=== PATIENT | female | born 1960 | race Caucasian/White ===

== ENCOUNTER 2018-10-31 09:17 | Inpatient (IN) | payer BC, SELFPAY ==
[~2018-10-31] VITALS: Ht 162.6 cm; Wt 85.0 kg
[2018-10-31 09:42] LABS: BASOPHILS # (AUTO) 0.1 X10'3 (0-0.2); BASOPHILS % (AUTO) 0.6 % (0-1); EOSINOPHILS # (AUTO) 0.1 X10'3 (0-0.9); EOSINOPHILS % (AUTO) 1.3 % (0-6); HEMATOCRIT 40.9 % (35.0-45.0); HEMOGLOBIN 14.1 g/dl (12.0-16.0); LYMPHOCYTES # (AUTO) 1.1 X10'3 (1.1-4.8); MEAN CORPUSCULAR HEMOGLOBIN 31.2 PG (27.0-31.0); MEAN CORPUSCULAR HGB CONC 34.5 g/dL (33.0-36.5); MEAN CORPUSCULAR VOLUME 90.5 FL (78-98); MEAN PLATELET VOLUME 6.9 FL (7.4-10.4); MONOCYTES # (AUTO) 0.8 X10'3 (0-0.9); MONOCYTES % (AUTO) 7.7 % (2-12); NEUTROPHILS # (AUTO) 8.8 X10'3 (1.8-7.7); NEUTROPHILS % (AUTO) 80.4 % (42-75); PLATELET COUNT 281 X10'3 (140-440); RED BLOOD COUNT 4.52 X10'6 (4.20-5.60); WHITE BLOOD COUNT 10.9 X10'3 (4.5-11.0)
[2018-10-31 09:54] LABS: ALANINE AMINOTRANSFERASE 39 U/L (12-78); ALBUMIN 3.3 G/DL (3.4-5.0); ALBUMIN/GLOBULIN RATIO 0.8 (1.1-1.5); ALKALINE PHOSPHATASE 57 IU/L (46-116); ANION GAP 13 (8-16); ASPARTATE AMINO TRANSFERASE 18 U/L (10-37); BILIRUBIN,TOTAL 0.4 MG/DL (0.1-1.0); BLOOD UREA NITROGEN 13 MG/DL (7-18); BUN/CREATININE RATIO 14.4 (6.6-38.0); CALCIUM 9.3 MG/DL (8.5-10.1); CHLORIDE 98 MMOL/L (99-107); ETHANOL < 0.010 GM/DL (0.0-0.010); GLUCOSE 181 MG/DL (70-104); MAGNESIUM 1.5 MG/DL (1.5-2.4); POTASSIUM 3.5 MMOL/L (3.5-5.1); SODIUM 136 MMOL/L (135-145); TOTAL CARBON DIOXIDE 24.7 MMOL/L (24-32); TOTAL PROTEIN 7.3 G/DL (6.4-8.2); eGFR 64 ML/MIN
[2018-10-31 09:55] LABS: PARTIAL THROMBOPLASTIN TIME 28 SECONDS (22-32)
[2018-10-31 10:44] LABS: URINE AMPHETAMINE SCREEN NEGATIVE (Neg); URINE BARBITUATE SCREEN NEGATIVE (Neg); URINE BENZODIAZEPINES SCREEN NEGATIVE (Neg); URINE CANNABINOID SCREEN POSITIVE (Neg); URINE COCAINE SCREEN NEGATIVE (Neg); URINE METHADONE SCREEN NEGATIVE (Neg); URINE OPIATE SCREEN NEGATIVE (Neg); URINE PHENCYCLIDINE SCREEN NEGATIVE (Neg)
--- NOTE | 2018-10-31 10:56 | NUR ---
TELENEURO HAS BEEN INITIATED
--- NOTE | 2018-10-31 10:57 | NUR ---
waiting on tele neuro consult
--- NOTE | 2018-10-31 11:16 | NUR ---
neurologist on tele
[2018-10-31] MEDS ORDERED: LORazepam 2 mg/ml vial IV ONE (12:10)
[2018-10-31] MEDS ORDERED: diazepam 5mg tablet PO ONE (12:10)
[2018-10-31] MEDS ORDERED: ISOS30TA6 PO (13:25)
[2018-10-31] MEDS ORDERED: METF-950 PO (13:25)
[2018-10-31] MEDS ORDERED: LOSA50TA64 PO (13:25)
[2018-10-31] MEDS ORDERED: LINA5TAB4 PO (13:25)
[2018-10-31] MEDS ORDERED: HYDR25TA4 PO (13:25)
[2018-10-31] MEDS ORDERED: INSU100I5 SQ ×2 (13:25→13:54)
[2018-10-31] MEDS ORDERED: SIMV80TA89 PO (13:25)
[2018-10-31] MEDS ORDERED: METO25TA6 PO (13:25)
[2018-10-31] MEDS ORDERED: aspirin 325mg tablet PO ONE (13:30)
--- NOTE | 2018-10-31 13:40 | NUR ---
Pt ambulated to restroom with no assistance required, ambualting with steady gait.
[2018-10-31] MEDS ORDERED: SIMV40TA PO (13:54)
[2018-10-31] MEDS ORDERED: CYAN100019 PO (13:57)
[2018-10-31] MEDS ORDERED: MULT-955 PO (13:57)
[2018-10-31] MEDS ORDERED: FERR325T32 PO (13:57)
[2018-10-31] MEDS ORDERED: CALC1TAB PO (13:57)
[2018-10-31] MEDS ORDERED: POTA99TA18 PO (13:57)
[2018-10-31] MEDS ORDERED: potassium Cl 20 mEq SR tablet PO PRN ×2 (14:30)
[2018-10-31] MEDS ORDERED: ondansetron/PF 4mg/2ml inj IV PRN (14:30)
[2018-10-31] MEDS ORDERED: morphine 2 MG/ML inj. syringe IV PRN (14:30)
[2018-10-31] MEDS ORDERED: potassium CL 10mEq/100ml bag 100 ML IV PRN ×2 (14:30)
[2018-10-31] MEDS ORDERED: mag hydrox/Alum hydrox/simeth 30ml oral suspension PO PRN (14:30)
[2018-10-31] MEDS ORDERED: magnesium hydroxide 30ml (MOM) UD suspension PO PRN (14:30)
[2018-10-31] MEDS ORDERED: HYDROcodone/acetaminophen 5mg/325mg tablet PO PRN (14:30)
[2018-10-31] MEDS ORDERED: magnesium 4gm in 100ml NS 100 ML IV PRN (14:30)
[2018-10-31] MEDS ORDERED: magnesium 2GM in 50ml NS 50 ML IV PRN (14:30)
[2018-10-31] MEDS ORDERED: acetaminophen 325mg tablet PO PRN ×2 (14:30)
[2018-10-31] MEDS ORDERED: magnesium Cl slow-release 64mg tablet PO PRN (14:30)
[2018-10-31] MEDS ORDERED: glucagon, human recombinant 1mg kit SUBCUT PRN (14:45)
[2018-10-31] MEDS ORDERED: MESSAGE TO PHARMACY PO ONE (14:45)
[2018-10-31] MEDS ORDERED: dextrose 50%-water 50ml dispensing syringe IV PRN ×2 (14:45)
[2018-10-31] MEDS ORDERED: dextrose ORAL solution 15 GM/59 ML bottle PO PRN ×2 (14:45)
--- NOTE | 2018-10-31 14:57 | NUR ---
Pt provided snack. No new deficits noted. Pt evaluated by hospitalist, awaiting room assignment.
[2018-10-31 15:05] LABS: HEMOGLOBIN A1C 7.1 % (4.5-6.2)
[2018-10-31] MEDS: clopidogrel 75mg tablet PO SCH (15:28)
--- NOTE | 2018-10-31 15:33 | NUR ---
Received report from Armin VELAZCO in the ER
[2018-10-31] MEDS: normal saline 1000ml 1,000 ML IV SCH (15:49)
[2018-10-31 16:07] VITALS: BP 172/89
--- NOTE | 2018-10-31 17:10 | NUR ---
robbie hospitalist [phone] can PRN albuterol treatments be ordered patient uses PRN at home, will continue to monitor
[2018-10-31] MEDS ORDERED: albuterol 2.5 MG/3 ML nebule NEB PRN (17:15)
[2018-10-31 18:00] VITALS: BP 182/89
--- NOTE | 2018-10-31 18:07 | NUR ---
Problems reprioritized. Patient report given, questions answered & plan of care reviewed with Shawanda Reynaga RN.
[2018-10-31] MEDS: metoprolol tartrate 25mg tablet PO SCH (20:55)
[2018-10-31] MEDS: heparin, porcine 5000 units/ml vial SQ SCH (20:58)
[2018-10-31] MEDS ORDERED: atorvastatin 20mg tablet PO SCH (21:00)
[2018-10-31] MEDS ORDERED: insulin glargine (Lantus) pen - multi-dose SQ SCH (21:00)
[2018-10-31] MEDS ORDERED: temazepam 15mg capsule PO PRN (21:00)
--- NOTE | 2018-10-31 21:29 | NUR ---
after dinner, resource nurse took carb count and stated to me that he would cover patient. continued to ask him if I needed to do it - he stated he would take care of it. at 2030, he still hadnt covered her dinner and carbs. he took her BS and covered her with Lantus.
[2018-10-31 22:00] VITALS: BP 181/79
[2018-11-01] MEDS: normal saline 1000ml 1,000 ML IV SCH ×2 (00:59→10:28)
[2018-11-01 02:08] VITALS: BP 164/69
--- NOTE | 2018-11-01 06:00 | NUR ---
Patient in room ORTHO 4022. I have received report from Shawanda Blanco RN and had the opportunity to ask questions and assume patient care.
--- NOTE | 2018-11-01 06:10 | NUR ---
Problems reprioritized. Patient report given, questions answered & plan of care reviewed with MORA Patel.
[2018-11-01 06:24] LABS: ANION GAP 6 (8-16); BLOOD UREA NITROGEN 10 MG/DL (7-18); BUN/CREATININE RATIO 14.1 (6.6-38.0); CALCIUM 8.8 MG/DL (8.5-10.1); CHLORIDE 105 MMOL/L (99-107); CHOL/HDL RATIO 5.4 (0.00-4.99); CHOLESTEROL 162 MG/DL (0-200); CREATININE 0.71 MG/DL (0.40-0.90); GLUCOSE 155 MG/DL (70-104); HDL CHOLESTEROL 30 MG/DL (35-60); LDL CHOLESTEROL 111 MG/DL (50-100); MAGNESIUM 1.4 MG/DL (1.5-2.4); POTASSIUM 3.5 MMOL/L (3.5-5.1); SODIUM 142 MMOL/L (135-145); TOTAL CARBON DIOXIDE 31.1 MMOL/L (24-32); TRIGLYCERIDES 156 MG/DL (20-135); eGFR 84 ML/MIN
[2018-11-01 06:30] LABS: BASOPHILS # (AUTO) 0.1 X10'3 (0-0.2); BASOPHILS % (AUTO) 0.9 % (0-1); EOSINOPHILS # (AUTO) 0.2 X10'3 (0-0.9); EOSINOPHILS % (AUTO) 2.6 % (0-6); HEMOGLOBIN 13.3 g/dl (12.0-16.0); LYMPHOCYTES # (AUTO) 1.2 X10'3 (1.1-4.8); LYMPHOCYTES % (AUTO) 19.3 % (21-51); MEAN CORPUSCULAR HEMOGLOBIN 31.1 PG (27.0-31.0); MEAN CORPUSCULAR VOLUME 91.4 FL (78-98); MEAN PLATELET VOLUME 7.2 FL (7.4-10.4); MONOCYTES # (AUTO) 0.8 X10'3 (0-0.9); NEUTROPHILS # (AUTO) 4.1 X10'3 (1.8-7.7); NEUTROPHILS % (AUTO) 65.2 % (42-75); PLATELET COUNT 258 X10'3 (140-440); RED BLOOD COUNT 4.27 X10'6 (4.20-5.60); RED CELL DISTRIBUTION WIDTH 13.1 % (11.5-14.5); WHITE BLOOD COUNT 6.3 X10'3 (4.5-11.0)
[2018-11-01 06:55] VITALS: BP 171/88
[2018-11-01 07:45] VITALS: BP 165/83
[2018-11-01] MEDS: metoprolol tartrate 25mg tablet PO SCH (07:47)
[2018-11-01] MEDS: clopidogrel 75mg tablet PO SCH (07:48)
[2018-11-01] MEDS: heparin, porcine 5000 units/ml vial SQ SCH (07:48)
[2018-11-01] MEDS ORDERED: isosorbide mononitrate 30mg tab.SR.24H PO SCH (08:00)
[2018-11-01] MEDS ORDERED: atorvastatin 20mg tablet PO SCH (08:00)
[2018-11-01] MEDS ORDERED: aspirin 81mg tablet.DR PO SCH (08:00)
[2018-11-01] MEDS ORDERED: K and/or MAG REPLACEMENT MC SCH (08:00)
[2018-11-01] MEDS ORDERED: losartan 50mg tablet PO SCH (08:00)
[2018-11-01] MEDS: insulin Lispro (HumaLOG) vial - multi-dose SQ SCH ×2 (08:38→13:32)
[2018-11-01] MEDS ORDERED: hyDRALAzine 10mg tablet PO PRN (09:30)
[2018-11-01 10:17] VITALS: BP 165/79
--- NOTE | 2018-11-01 12:51 | NUR ---
DM consult: Pt with A1c 7.1 seen at bedside. Pt denies any questions about DM management at this time. Written DM ed with referral to outpatient DM class and RD contact information provided. Pt endorses a good appetite and denies food allergies, difficulty chewing/swallowing, or constipation/diarrhea. Will continue to follow. Addendum: 11/01/18 at [address] Amended: Links added.
[2018-11-01 14:00] VITALS: BP 159/80
[2018-11-01] MEDS ORDERED: CLOP75TA35 PO (15:04)
[2018-11-01] MEDS ORDERED: hyDRALAzine tablet PO (15:04)
[2018-11-01] MEDS ORDERED: ASPI-1071 PO (15:04)
[2018-11-01 15:08] VITALS: BP 155/84
--- NOTE | 2018-11-01 15:45 | NUR ---
Called in Rx to [facility] in [place]
--- NOTE | 2018-11-01 16:00 | NUR ---
Reviewed discharge instructions with pt. Pt verbalized understanding. Called in Rx to [facility] in [place]. All of pt's belongings were returned to pt. Pt was wheeled downstairs to be driven home by her . Pt is alert and oriented with no c/o pain or discomfort at this time.
[2018-11-02] MEDS ORDERED: HYDROchlorothiazide 12.5mg capsule PO SCH (08:00)
== END 2018-11-01 16:10 | disposition home or self-care (01) | DRG 66 ==
LOC: ER 09:18 → ORTHO 4S 15:54
PROVIDERS: ADMIT Internal Medicine; ATTEND Internal Medicine
DX: I63.9 Cerebral infarction, unspecified (principal); Z88.6 Allergy status to analgesic agent; R47.01 Aphasia; I10 Essential (primary) hypertension; E78.5 Hyperlipidemia, unspecified; E11.65 Type 2 diabetes mellitus with hyperglycemia; F43.9 Reaction to severe stress, unspecified; Z88.1 Allergy status to other antibiotic agents; Z88.8 Allergy status to other drugs, medicaments and biological substances; I25.10 Atherosclerotic heart disease of native coronary artery without angina pectoris; E78.00 Pure hypercholesterolemia, unspecified; Z87.442 Personal history of urinary calculi; Z95.5 Presence of coronary angioplasty implant and graft
CPT/HCPCS: 36415; 70450; 70544; 70551; 71045; 80048; 80053; 80061; 80305; 80320; 82948; 83036; 83735; 84484; 85025; 85610; 85730; 87081; 92508; 92616; 93005; 93306; 93880; 94760; 96374; 97162; 97530; 99285; G0378; J1644; J1815; J2060; J7030

== ENCOUNTER 2018-12-03 20:16 | Emergency (ER) | payer BC ==
[~2018-12-03] VITALS: Ht 167.6 cm; Wt 84.5 kg
[~2018-12-03 20:16] MED LIST: ASPI-1071 PO; CALC1TAB PO; CLOP75TA35 PO; CYAN100019 PO; FERR325T32 PO; HYDR25TA4 PO; INSU100I5 SQ; ISOS30TA6 PO; LINA5TAB4 PO; LOSA50TA64 PO; METF-950 PO; METO25TA6 PO; MULT-955 PO; POTA99TA18 PO; SIMV40TA PO; hyDRALAzine tablet PO
[2018-12-03] MEDS ORDERED: cloNIDine 0.1 mg tablet PO ONE ×2 (21:10→22:00)
[2018-12-03 21:39] LABS: BASOPHILS # (AUTO) 0.1 X10'3 (0-0.2); BASOPHILS % (AUTO) 0.9 % (0-1); EOSINOPHILS # (AUTO) 0.2 X10'3 (0-0.9); EOSINOPHILS % (AUTO) 2.5 % (0-6); HEMATOCRIT 40.4 % (35.0-45.0); HEMOGLOBIN 13.7 g/dl (12.0-16.0); LYMPHOCYTES # (AUTO) 1.3 X10'3 (1.1-4.8); LYMPHOCYTES % (AUTO) 17.3 % (21-51); MEAN CORPUSCULAR HEMOGLOBIN 30.7 PG (27.0-31.0); MEAN CORPUSCULAR HGB CONC 33.8 g/dL (33.0-36.5); MEAN CORPUSCULAR VOLUME 90.7 FL (78-98); MEAN PLATELET VOLUME 7.1 FL (7.4-10.4); MONOCYTES # (AUTO) 0.8 X10'3 (0-0.9); MONOCYTES % (AUTO) 10.2 % (2-12); NEUTROPHILS # (AUTO) 5.2 X10'3 (1.8-7.7); NEUTROPHILS % (AUTO) 69.1 % (42-75); PLATELET COUNT 258 X10'3 (140-440); RED BLOOD COUNT 4.46 X10'6 (4.20-5.60); RED CELL DISTRIBUTION WIDTH 12.8 % (11.5-14.5); WHITE BLOOD COUNT 7.5 X10'3 (4.5-11.0)
[2018-12-03 21:51] LABS: ALANINE AMINOTRANSFERASE 24 U/L (12-78); ALBUMIN 3.5 G/DL (3.4-5.0); ALBUMIN/GLOBULIN RATIO 0.9 (1.1-1.5); ALKALINE PHOSPHATASE 50 IU/L (46-116); ANION GAP 8 (8-16); ASPARTATE AMINO TRANSFERASE 11 U/L (10-37); BILIRUBIN,TOTAL 0.4 MG/DL (0.1-1.0); BLOOD UREA NITROGEN 16 MG/DL (7-18); BUN/CREATININE RATIO 19.8 (6.6-38.0); CALCIUM 9.9 MG/DL (8.5-10.1); CHLORIDE 99 MMOL/L (99-107); CREATININE 0.81 MG/DL (0.40-0.90); GLUCOSE 166 MG/DL (70-104); POTASSIUM 3.3 MMOL/L (3.5-5.1); SODIUM 138 MMOL/L (135-145); TOTAL CARBON DIOXIDE 31.3 MMOL/L (24-32); TOTAL PROTEIN 7.4 G/DL (6.4-8.2); eGFR 72 ML/MIN
[2018-12-03 22:06] LABS: CLARITY,URINE CLEAR (Clear); COLOR,URINE YELLOW (Yellow); GLUCOSE, URINE NEGATIVE (Neg); KETONES,URINE NEGATIVE (Neg); LEUKOCYTE ESTERASE ,URINE LARGE (Neg); NITRITES, URINE NEGATIVE (Neg); OCCULT BLOOD,URINE MODERATE (Neg); PROTEIN,URINE NEGATIVE (Neg); UROBILINOGEN,URINE 0.2 E.U/dL (0.2-1.0)
[2018-12-03 22:07] LABS: UA COLLECTION TYPE CLN CATCH MIDSTREAM
[2018-12-03 22:11] LABS: BACTERIA,URINE FEW /HPF (Neg); RBC,URINE 0-2 /HPF (0-2); SQUAMOUS EPITHELIAL CELL,UR FEW /LPF (FEW)
[2018-12-03 22:12] LABS: MUCUS STRANDS NONE SEEN /LPF (Neg)
[2018-12-03 23:11] VITALS: BP 130/70
== END 2018-12-03 23:10 | disposition home or self-care (01) ==
LOC: ER 20:17
DX: I10 Essential (primary) hypertension (principal); R47.01 Aphasia; I25.10 Atherosclerotic heart disease of native coronary artery without angina pectoris; E78.00 Pure hypercholesterolemia, unspecified; E11.9 Type 2 diabetes mellitus without complications; Z87.442 Personal history of urinary calculi; Z98.61 Coronary angioplasty status; Z98.890 Other specified postprocedural states; Z88.2 Allergy status to sulfonamides; Z88.5 Allergy status to narcotic agent; Z88.8 Allergy status to other drugs, medicaments and biological substances; Z79.82 Long term (current) use of aspirin; Z79.899 Other long term (current) drug therapy
CPT/HCPCS: 36415; 80053; 81001; 85025; 87088; 93005; 99284

== ENCOUNTER 2018-12-10 02:37 | Inpatient (IN) | payer BC ==
[2018-12-10] VITALS (7 sets, daily range): BP systolic 141–191; BP diastolic 66–101
[~2018-12-10] VITALS: Ht 167.6 cm; Wt 83.2 kg
[2018-12-10 03:16] LABS: BASOPHILS % (AUTO) 0.5 % (0-1); EOSINOPHILS # (AUTO) 0.1 X10'3 (0-0.9); EOSINOPHILS % (AUTO) 1.6 % (0-6); HEMATOCRIT 41.1 % (35.0-45.0); HEMOGLOBIN 13.9 g/dl (12.0-16.0); LYMPHOCYTES # (AUTO) 1.3 X10'3 (1.1-4.8); LYMPHOCYTES % (AUTO) 15.1 % (21-51); MEAN CORPUSCULAR HEMOGLOBIN 30.5 PG (27.0-31.0); MEAN CORPUSCULAR HGB CONC 33.7 g/dL (33.0-36.5); MEAN CORPUSCULAR VOLUME 90.6 FL (78-98); MEAN PLATELET VOLUME 7.1 FL (7.4-10.4); MONOCYTES % (AUTO) 11.9 % (2-12); NEUTROPHILS # (AUTO) 6.1 X10'3 (1.8-7.7); NEUTROPHILS % (AUTO) 70.9 % (42-75); PLATELET COUNT 263 X10'3 (140-440); RED BLOOD COUNT 4.54 X10'6 (4.20-5.60); RED CELL DISTRIBUTION WIDTH 13.2 % (11.5-14.5); WHITE BLOOD COUNT 8.6 X10'3 (4.5-11.0)
[2018-12-10 03:22] LABS: PARTIAL THROMBOPLASTIN TIME 27 SECONDS (22-32)
[2018-12-10 03:29] LABS: ALANINE AMINOTRANSFERASE 28 U/L (12-78); ALBUMIN 3.7 G/DL (3.4-5.0); ALKALINE PHOSPHATASE 45 IU/L (46-116); ANION GAP 12 (8-16); ASPARTATE AMINO TRANSFERASE 17 U/L (10-37); BILIRUBIN,TOTAL 0.6 MG/DL (0.1-1.0); BLOOD UREA NITROGEN 18 MG/DL (7-18); CALCIUM 9.4 MG/DL (8.5-10.1); CHLORIDE 97 MMOL/L (99-107); CREATININE 0.82 MG/DL (0.40-0.90); GLUCOSE 136 MG/DL (70-104); POTASSIUM 3.3 MMOL/L (3.5-5.1); SODIUM 136 MMOL/L (135-145); TOTAL CARBON DIOXIDE 26.6 MMOL/L (24-32); TOTAL PROTEIN 7.5 G/DL (6.4-8.2); TROPONIN I < 0.04 NG/ML (0.0-0.05); eGFR 71 ML/MIN
[2018-12-10] MEDS ORDERED: ondansetron/PF 4mg/2ml inj IV PRN (05:10)
[2018-12-10] MEDS ORDERED: magnesium 2GM in 50ml NS 50 ML IV PRN (05:10)
[2018-12-10] MEDS ORDERED: mag hydrox/Alum hydrox/simeth 30ml oral suspension PO PRN (05:10)
[2018-12-10] MEDS ORDERED: MESSAGE TO PHARMACY PO ONE (05:10)
[2018-12-10] MEDS ORDERED: potassium Cl 20 mEq SR tablet PO PRN (05:10)
[2018-12-10] MEDS ORDERED: magnesium hydroxide 30ml (MOM) UD suspension PO PRN (05:10)
[2018-12-10] MEDS ORDERED: potassium CL 10mEq/100ml bag 100 ML IV PRN ×2 (05:10)
[2018-12-10] MEDS ORDERED: acetaminophen 325mg tablet PO PRN ×2 (05:10)
[2018-12-10] MEDS ORDERED: glucagon, human recombinant 1mg kit SUBCUT PRN (05:10)
[2018-12-10] MEDS ORDERED: dextrose 50%-water 50ml dispensing syringe IV PRN ×2 (05:10)
[2018-12-10] MEDS ORDERED: magnesium 4gm in 100ml NS 100 ML IV PRN (05:10)
[2018-12-10] MEDS ORDERED: dextrose ORAL solution 15 GM/59 ML bottle PO PRN ×2 (05:10)
[2018-12-10] MEDS ORDERED: magnesium Cl slow-release 64mg tablet PO PRN (05:10)
[2018-12-10 05:25] LABS: C-REACTIVE PROTEIN 0.39 MG/DL (0.0-0.5)
[2018-12-10] MEDS ORDERED: hydrALAZINE 25 MG tablet PO PRN (06:20)
[2018-12-10] MEDS ORDERED: clopidogrel 75mg tablet PO SCH (08:00)
[2018-12-10] MEDS ORDERED: aspirin 81mg tablet.DR PO SCH (08:00)
[2018-12-10] MEDS ORDERED: Potassium Gluconate 99 MG PO SCH (08:00)
[2018-12-10] MEDS: K and/or MAG REPLACEMENT MC SCH (08:33)
[2018-12-10] MEDS: ferrous sulfate 325mg tablet PO SCH (08:43)
[2018-12-10] MEDS: HYDROchlorothiazide 25mg tablet PO SCH (08:43)
[2018-12-10] MEDS: isosorbide mononitrate 30mg tab.SR.24H PO SCH (08:43)
[2018-12-10] MEDS: metoprolol tartrate 25mg tablet PO SCH ×2 (08:44→20:40)
[2018-12-10] MEDS: calcium carbonate/vitamin D3 tablet PO SCH (08:45)
[2018-12-10] MEDS: multivitamins, therapeutics tablet PO SCH (08:46)
[2018-12-10] MEDS: cyanocobalamin 500mcg tablet PO SCH (08:47)
[2018-12-10] MEDS: enoxaparin 40mg/0.4ml syringe SQ SCH (08:48)
[2018-12-10] MEDS: potassium Cl 20 mEq SR tablet PO PRN ×3 (08:49→20:36)
[2018-12-10] MEDS: insulin Lispro (HumaLOG) vial - multi-dose SQ SCH ×2 (15:06→19:16)
--- NOTE | 2018-12-10 18:10 | NUR ---
Received report from Chelly VELAZCO. Assumed care of patient.
--- NOTE | 2018-12-10 18:30 | NUR ---
Dr. Butler came in to assess patient's neurological system. Ordered to stop plavix & aspirin and prescribed aggrenox
[2018-12-10] MEDS ORDERED: insulin glargine (Lantus) pen - multi-dose SQ SCH (21:00)
[2018-12-10] MEDS ORDERED: atorvastatin 20mg tablet PO SCH (21:00)
[2018-12-10] MEDS: aspirin/dipyridamole 25mg/200mg SR. capsule PO SCH (21:07)
[2018-12-11 02:00] VITALS: BP 139/69
[2018-12-11 05:52] LABS: BASOPHILS # (AUTO) 0.1 X10'3 (0-0.2); BASOPHILS % (AUTO) 0.9 % (0-1); EOSINOPHILS # (AUTO) 0.1 X10'3 (0-0.9); EOSINOPHILS % (AUTO) 1.4 % (0-6); HEMATOCRIT 42.8 % (35.0-45.0); HEMOGLOBIN 15.1 g/dl (12.0-16.0); LYMPHOCYTES # (AUTO) 1.3 X10'3 (1.1-4.8); MEAN CORPUSCULAR HEMOGLOBIN 31.8 PG (27.0-31.0); MEAN CORPUSCULAR HGB CONC 35.1 g/dL (33.0-36.5); MEAN CORPUSCULAR VOLUME 90.5 FL (78-98); MEAN PLATELET VOLUME 7.1 FL (7.4-10.4); MONOCYTES % (AUTO) 11.7 % (2-12); PLATELET COUNT 277 X10'3 (140-440); RED BLOOD COUNT 4.73 X10'6 (4.20-5.60); RED CELL DISTRIBUTION WIDTH 13.1 % (11.5-14.5); WHITE BLOOD COUNT 8.4 X10'3 (4.5-11.0)
[2018-12-11 06:00] VITALS: BP 130/73
--- NOTE | 2018-12-11 06:05 | NUR ---
Gave report to Saige VELAZCO.
--- NOTE | 2018-12-11 06:09 | NUR ---
received report to salo coates
[2018-12-11 06:16] LABS: ALBUMIN 3.9 G/DL (3.4-5.0); ANION GAP 11 (8-16); BLOOD UREA NITROGEN 11 MG/DL (7-18); BUN/CREATININE RATIO 13.1 (6.6-38.0); CALCIUM 10.2 MG/DL (8.5-10.1); CHLORIDE 97 MMOL/L (99-107); CREATININE 0.84 MG/DL (0.40-0.90); GLUCOSE 188 MG/DL (70-104); MAGNESIUM 1.9 MG/DL (1.5-2.4); POTASSIUM 3.7 MMOL/L (3.5-5.1); SODIUM 134 MMOL/L (135-145); TOTAL CARBON DIOXIDE 26.3 MMOL/L (24-32); eGFR 69 ML/MIN
--- NOTE | 2018-12-11 06:50 | NUR ---
Patient in room ORTHO 4014. I have received report from Saige VELAZCO and had the opportunity to ask questions and assume patient care.
[2018-12-11] MEDS: K and/or MAG REPLACEMENT MC SCH (07:09)
[2018-12-11] MEDS: aspirin/dipyridamole 25mg/200mg SR. capsule PO SCH (07:49)
[2018-12-11] MEDS: cyanocobalamin 500mcg tablet PO SCH (07:49)
[2018-12-11] MEDS: metoprolol tartrate 25mg tablet PO SCH (07:51)
[2018-12-11] MEDS: isosorbide mononitrate 30mg tab.SR.24H PO SCH (07:52)
[2018-12-11] MEDS: ferrous sulfate 325mg tablet PO SCH (07:52)
[2018-12-11] MEDS: HYDROchlorothiazide 25mg tablet PO SCH (07:53)
[2018-12-11] MEDS: calcium carbonate/vitamin D3 tablet PO SCH (07:53)
[2018-12-11] MEDS: multivitamins, therapeutics tablet PO SCH (07:54)
[2018-12-11] MEDS: enoxaparin 40mg/0.4ml syringe SQ SCH (07:55)
[2018-12-11] MEDS: insulin Lispro (HumaLOG) vial - multi-dose SQ SCH (08:40)
--- NOTE | 2018-12-11 09:13 | NUR ---
CALLED LAB REGARDING FACTOR V TEST, A PATHOLOGIST HAS TO APPROVE THE TEST PRIOR TO RUNNING. NOTIFIED DR. AL.
[2018-12-11 10:00] VITALS: BP 139/81
[2018-12-11] MEDS ORDERED: ASPI1CPM6 PO (11:43)
--- NOTE | 2018-12-11 11:52 | NUR ---
Student documentation: I have reviewed all interventions, assessments performed and documented by Gay Coello. Student Medication Administration: For this medication-pass time frame, all medication were reviewed, dispensed, administered and documented per hospital policy by Gay Coello.
--- NOTE | 2018-12-11 12:15 | NUR ---
Problems reprioritized. Patient report given, questions answered & plan of care reviewed with Saige VELAZCO.
--- NOTE | 2018-12-11 12:38 | NUR ---
pt d/c w/instructions, understanding of instructions and w/all belongings in wheelchair to private vehicle to go home and f/u w/pcp and neurologist
[2018-12-12 17:08] LABS: ATYPICAL PANCA <1:20 titer (Neg:<1:20); CYTOPLASMIC (C-ANCA) <1:20 titer (Neg:<1:20); PERINUCLEAR (P-ANCA) <1:20 titer (Neg:<1:20)
[2018-12-13 08:14] LABS: PROTEIN S, FREE 124 % (57-157); PROTEIN S, TOTAL 99 % (60-150)
[2018-12-13 11:10] LABS: ANTITHROMBIN ACTIVITY 124 % (75-135); ANTITHROMBIN ANTIGEN 112 % (72-124)
== END 2018-12-11 12:30 | disposition home or self-care (01) | DRG 66 ==
LOC: ER 02:38 → ORTHO 4S 07:44 → CMPBEDREQ 19:43
PROVIDERS: ADMIT Hospitalist; ATTEND Hospitalist
DX: I63.512 Cerebral infarction due to unspecified occlusion or stenosis of left middle cerebral artery (principal); E11.9 Type 2 diabetes mellitus without complications; E78.00 Pure hypercholesterolemia, unspecified; I10 Essential (primary) hypertension; I25.10 Atherosclerotic heart disease of native coronary artery without angina pectoris; Z79.02 Long term (current) use of antithrombotics/antiplatelets; Z79.82 Long term (current) use of aspirin; Z87.442 Personal history of urinary calculi; Z88.2 Allergy status to sulfonamides; Z88.5 Allergy status to narcotic agent; Z88.8 Allergy status to other drugs, medicaments and biological substances; Z98.891 History of uterine scar from previous surgery; Z79.899 Other long term (current) drug therapy; Z79.4 Long term (current) use of insulin
CPT/HCPCS: 36415; 70450; 70544; 70547; 70551; 71045; 80048; 80053; 82948; 83735; 84484; 85025; 85300; 85301; 85303; 85305; 85306; 85610; 85651; 85730; 86038; 86140; 86147; 86256; 87081; 92507; 92508; 92616; 93005; 97116; 97161; 97530; 99285; G0378; J1650; J1815; J3420

== ENCOUNTER 2018-12-13 20:08 | Inpatient (IN) | payer BC ==
[~2018-12-13] VITALS: Ht 167.6 cm; Wt 82.7 kg
[~2018-12-13 20:08] MED LIST changes: +ASPI1CPM6 PO; -CLOP75TA35 PO; -LOSA50TA64 PO
--- NOTE | 2018-12-13 20:40 | NUR ---
Responded to level 1 stroke alert bed 14. pt up ambulating to bathroom, CT is complete. at bedside, he reports that at 1840 she had worsening expressive aphasia and c/o that left face, arm and leg were cold and numb. awaiting SOC consult. reviewed old records with mri showing recent stroke.
--- NOTE | 2018-12-13 21:15 | NUR ---
Dr. Chu from [facility] for neuro consult. Her speech is at baseline per , she has very mild numbness to left face and arm. She is able to ambulate independenly. She recommends admission with stroke workup.
[2018-12-13 21:27] LABS: BASOPHILS # (AUTO) 0.1 X10'3 (0-0.2); EOSINOPHILS # (AUTO) 0.1 X10'3 (0-0.9); HEMATOCRIT 39.6 % (35.0-45.0); HEMOGLOBIN 13.6 g/dl (12.0-16.0); LYMPHOCYTES # (AUTO) 1.3 X10'3 (1.1-4.8); LYMPHOCYTES % (AUTO) 15.5 % (21-51); MEAN CORPUSCULAR HEMOGLOBIN 31.1 PG (27.0-31.0); MEAN CORPUSCULAR HGB CONC 34.3 g/dL (33.0-36.5); MEAN CORPUSCULAR VOLUME 90.6 FL (78-98); MEAN PLATELET VOLUME 7.2 FL (7.4-10.4); MONOCYTES # (AUTO) 0.9 X10'3 (0-0.9); MONOCYTES % (AUTO) 10.8 % (2-12); NEUTROPHILS # (AUTO) 5.9 X10'3 (1.8-7.7); NEUTROPHILS % (AUTO) 71.7 % (42-75); PLATELET COUNT 298 X10'3 (140-440); RED BLOOD COUNT 4.38 X10'6 (4.20-5.60); WHITE BLOOD COUNT 8.2 X10'3 (4.5-11.0)
[2018-12-13 21:28] LABS: PARTIAL THROMBOPLASTIN TIME 27 SECONDS (22-32)
[2018-12-13 21:47] LABS: ALANINE AMINOTRANSFERASE 31 U/L (12-78); ALBUMIN 3.5 G/DL (3.4-5.0); ALBUMIN/GLOBULIN RATIO 0.9 (1.1-1.5); ALKALINE PHOSPHATASE 43 IU/L (46-116); ANION GAP 12 (8-16); ASPARTATE AMINO TRANSFERASE 16 U/L (10-37); BILIRUBIN,TOTAL 0.5 MG/DL (0.1-1.0); BLOOD UREA NITROGEN 18 MG/DL (7-18); BUN/CREATININE RATIO 19.8 (6.6-38.0); CALCIUM 9.1 MG/DL (8.5-10.1); CHLORIDE 100 MMOL/L (99-107); CREATININE 0.91 MG/DL (0.40-0.90); GLUCOSE 97 MG/DL (70-104); SODIUM 139 MMOL/L (135-145); TOTAL CARBON DIOXIDE 27.3 MMOL/L (24-32); TOTAL PROTEIN 7.2 G/DL (6.4-8.2); TROPONIN I < 0.04 NG/ML (0.0-0.05); eGFR 63 ML/MIN
[2018-12-13 21:54] LABS: POTASSIUM 2.9 MMOL/L (3.5-5.1)
[2018-12-13] MEDS ORDERED: magnesium 2GM in 50ml NS 50 ML IV ONE (22:05)
[2018-12-13] MEDS ORDERED: potassium 10mEq/100ml NS w/LIDOcaine (10mg/bag) IV ONE (22:05)
[2018-12-13] MEDS ORDERED: magnesium oxide 400mg tablet PO ONE (22:05)
[2018-12-13] MEDS ORDERED: potassium Cl 20 mEq SR tablet PO ONE (22:05)
[2018-12-13] MEDS ORDERED: potassium Cl 10 mEq/100mL bag IV ONE (22:10)
[2018-12-13] MEDS ORDERED: morphine 2 MG/ML inj. syringe IV PRN ×2 (22:30)
[2018-12-13] MEDS ORDERED: magnesium hydroxide 30ml (MOM) UD suspension PO PRN (22:30)
[2018-12-13] MEDS ORDERED: acetaminophen 325mg tablet PO PRN (22:30)
[2018-12-13] MEDS ORDERED: mag hydrox/Alum hydrox/simeth 30ml oral suspension PO PRN (22:30)
[2018-12-13] MEDS ORDERED: ondansetron/PF 4mg/2ml inj IV PRN (22:30)
[2018-12-13 22:43] LABS: MAGNESIUM 1.5 MG/DL (1.5-2.4)
--- NOTE | 2018-12-13 23:00 | NUR ---
Patient in room ORTHO 4009. I have received report from MORA Howard and had the opportunity to ask questions and assume patient care.
[2018-12-13 23:21] LABS: CLARITY,URINE SLIGHTLY CLOUDY (Clear); COLOR,URINE YELLOW (Yellow); GLUCOSE, URINE NEGATIVE (Neg); KETONES,URINE NEGATIVE (Neg); LEUKOCYTE ESTERASE ,URINE MODERATE (Neg); NITRITES, URINE NEGATIVE (Neg); OCCULT BLOOD,URINE NEGATIVE (Neg); PROTEIN,URINE NEGATIVE (Neg); UROBILINOGEN,URINE 0.2 E.U/dL (0.2-1.0)
[2018-12-13 23:22] LABS: UA COLLECTION TYPE CLN CATCH MIDSTREAM
[2018-12-13 23:48] LABS: BACTERIA,URINE 2+ /HPF (Neg); MUCUS STRANDS NONE SEEN /LPF (Neg); RBC,URINE 0-2 /HPF (0-2); SQUAMOUS EPITHELIAL CELL,UR MODERATE /LPF (FEW); WBC CLUMPS,URINE MODERATE /HPF (NEGATIVE); WBC,URINE 30-50 /HPF (0-4)
[2018-12-14] VITALS (12 sets, daily range): BP systolic 143–192; BP diastolic 71–99
[2018-12-14] MEDS ORDERED: potassium Cl 20 mEq SR tablet PO PRN ×2 (00:25)
[2018-12-14] MEDS ORDERED: potassium CL 10mEq/100ml bag 100 ML IV PRN (00:25)
[2018-12-14] MEDS ORDERED: LORazepam 2 mg/ml vial IV ONE (00:40)
--- NOTE | 2018-12-14 06:20 | NUR ---
Problems reprioritized. Patient report given, questions answered & plan of care reviewed with MORA Mata.
[2018-12-14 06:50] LABS: ALBUMIN 3.2 G/DL (3.4-5.0); ANION GAP 9 (8-16); BLOOD UREA NITROGEN 13 MG/DL (7-18); CALCIUM 9.6 MG/DL (8.5-10.1); CHLORIDE 105 MMOL/L (99-107); CREATININE 0.62 MG/DL (0.40-0.90); GLUCOSE 88 MG/DL (70-104); POTASSIUM 3.5 MMOL/L (3.5-5.1); SODIUM 141 MMOL/L (135-145); eGFR > 90 ML/MIN
--- NOTE | 2018-12-14 06:50 | NUR ---
Patient in room ORTHO 4009. I have received report from Margaret VELAZCO and had the opportunity to ask questions and assume patient care.
[2018-12-14 06:52] LABS: BASOPHILS # (AUTO) 0.1 X10'3 (0-0.2); BASOPHILS % (AUTO) 0.8 % (0-1); EOSINOPHILS # (AUTO) 0.2 X10'3 (0-0.9); HEMATOCRIT 37.9 % (35.0-45.0); HEMOGLOBIN 13.1 g/dl (12.0-16.0); LYMPHOCYTES # (AUTO) 1.2 X10'3 (1.1-4.8); LYMPHOCYTES % (AUTO) 15.7 % (21-51); MEAN CORPUSCULAR HGB CONC 34.6 g/dL (33.0-36.5); MEAN CORPUSCULAR VOLUME 89.7 FL (78-98); MEAN PLATELET VOLUME 7.2 FL (7.4-10.4); MONOCYTES # (AUTO) 0.9 X10'3 (0-0.9); MONOCYTES % (AUTO) 11.8 % (2-12); NEUTROPHILS # (AUTO) 5.2 X10'3 (1.8-7.7); NEUTROPHILS % (AUTO) 69.7 % (42-75); PLATELET COUNT 258 X10'3 (140-440); RED BLOOD COUNT 4.22 X10'6 (4.20-5.60); RED CELL DISTRIBUTION WIDTH 13.1 % (11.5-14.5); WHITE BLOOD COUNT 7.5 X10'3 (4.5-11.0)
[2018-12-14 07:23] LABS: MAGNESIUM 2.1 MG/DL (1.5-2.4)
[2018-12-14] MEDS ORDERED: aspirin/dipyridamole 25mg/200mg SR. capsule PO SCH (08:00)
--- NOTE | 2018-12-14 09:35 | NUR ---
Paged hospitalist [phone] please review patients home meds and continue if not contraindicated, will continue to monitor
--- NOTE | 2018-12-14 10:01 | NUR ---
DM consult: Pt with A1c 7.1 recently admitted and seen by RD last month for DM education with referral to outpatient DM class and RD contact information. No further education warranted at this time. Pt admit with possible TIA with recent CVA presenting with left-sided weakness and worsening aphasia and dysphagia. ST has already been consulted for BSS. Will continue to follow. Addendum: 12/14/18 at [address] Amended: Links added.
--- NOTE | 2018-12-14 10:58 | NUR ---
paged hospitalist [phone] second page patient and very upset about patient not receiving her home meds please review med list
[2018-12-14] MEDS ORDERED: HYDR-4069 PO (11:44)
[2018-12-14] MEDS ORDERED: CLOP75TA15 PO (11:46)
[2018-12-14] MEDS ORDERED: atorvastatin 20mg tablet PO ONE (13:35)
[2018-12-14] MEDS ORDERED: aspirin 81mg tab.chew PO ONE (13:40)
[2018-12-14] MEDS ORDERED: clopidogrel 75mg tablet PO ONE (13:50)
[2018-12-14] MEDS: metFORMIN 500mg tablet PO SCH (17:49)
--- NOTE | 2018-12-14 18:29 | NUR ---
paged hospitalist [phone] UA showed some positive results would you like antibiotics to be started
--- NOTE | 2018-12-14 18:30 | NUR ---
Patient in room ORTHO 4009. I have received report from MORA Mata and had the opportunity to ask questions and assume patient care.
--- NOTE | 2018-12-14 18:32 | NUR ---
Problems reprioritized. Patient report given, questions answered & plan of care reviewed with Margaret VELAZCO.
--- NOTE | 2018-12-14 20:00 | NUR ---
Dr. Hernandez called regarding pt. BP medication adjustment .Lasartine 50 mg. daily noon time.We will continue with pt. care.
[2018-12-14] MEDS: hydrALAZINE 25 MG tablet PO PRN (20:02)
[2018-12-14] MEDS ORDERED: atorvastatin 20mg tablet PO SCH (21:00)
[2018-12-14] MEDS: amox tr/potassium clavulanate 875/125mg TAB PO SCH (21:08)
[2018-12-14] MEDS: metoprolol tartrate 25mg tablet PO SCH (21:09)
[2018-12-15] VITALS: BP 155/79
[2018-12-15 02:00] VITALS: BP 137/65
[2018-12-15 04:00] VITALS: BP 162/82
[2018-12-15] MEDS: hydrALAZINE 25 MG tablet PO PRN (05:25)
[2018-12-15 06:00] VITALS: BP 163/82
--- NOTE | 2018-12-15 06:12 | NUR ---
received report from salo castillo
[2018-12-15 06:31] LABS: BASOPHILS # (AUTO) 0.1 X10'3 (0-0.2); BASOPHILS % (AUTO) 1.1 % (0-1); EOSINOPHILS # (AUTO) 0.2 X10'3 (0-0.9); EOSINOPHILS % (AUTO) 2.4 % (0-6); HEMATOCRIT 40.7 % (35.0-45.0); HEMOGLOBIN 13.7 g/dl (12.0-16.0); LYMPHOCYTES # (AUTO) 1.3 X10'3 (1.1-4.8); LYMPHOCYTES % (AUTO) 20.2 % (21-51); MEAN CORPUSCULAR HEMOGLOBIN 30.5 PG (27.0-31.0); MEAN CORPUSCULAR HGB CONC 33.6 g/dL (33.0-36.5); MEAN CORPUSCULAR VOLUME 90.8 FL (78-98); MONOCYTES # (AUTO) 0.8 X10'3 (0-0.9); MONOCYTES % (AUTO) 11.6 % (2-12); NEUTROPHILS # (AUTO) 4.2 X10'3 (1.8-7.7); NEUTROPHILS % (AUTO) 64.7 % (42-75); PLATELET COUNT 277 X10'3 (140-440); RED BLOOD COUNT 4.49 X10'6 (4.20-5.60); RED CELL DISTRIBUTION WIDTH 13.2 % (11.5-14.5); WHITE BLOOD COUNT 6.5 X10'3 (4.5-11.0)
--- NOTE | 2018-12-15 06:31 | NUR ---
Problems reprioritized. Patient report given, questions answered & plan of care reviewed with MORA Moulton.
[2018-12-15 06:45] LABS: ALBUMIN 3.5 G/DL (3.4-5.0); ANION GAP 11 (8-16); BLOOD UREA NITROGEN 12 MG/DL (7-18); BUN/CREATININE RATIO 17.1 (6.6-38.0); CALCIUM 8.9 MG/DL (8.5-10.1); CHLORIDE 104 MMOL/L (99-107); GLUCOSE 148 MG/DL (70-104); MAGNESIUM 1.8 MG/DL (1.5-2.4); POTASSIUM 3.8 MMOL/L (3.5-5.1); SODIUM 142 MMOL/L (135-145); TOTAL CARBON DIOXIDE 26.9 MMOL/L (24-32); eGFR 86 ML/MIN
[2018-12-15] MEDS ORDERED: HYDROchlorothiazide 12.5mg capsule PO SCH (08:00)
[2018-12-15] MEDS ORDERED: calcium carbonate/vitamin D3 tablet PO SCH (08:00)
[2018-12-15] MEDS ORDERED: clopidogrel 75mg tablet PO SCH (08:00)
[2018-12-15] MEDS ORDERED: losartan 25mg tablet PO SCH ×3 (08:00→12:00)
[2018-12-15] MEDS ORDERED: multivitamins, therapeutics tablet PO SCH (08:00)
[2018-12-15] MEDS ORDERED: ferrous sulfate 325mg tablet PO SCH (08:00)
[2018-12-15] MEDS ORDERED: cyanocobalamin 500mcg tablet PO SCH (08:00)
[2018-12-15] MEDS: amox tr/potassium clavulanate 875/125mg TAB PO SCH (08:13)
[2018-12-15] MEDS: metFORMIN 500mg tablet PO SCH (08:13)
[2018-12-15] MEDS: metoprolol tartrate 25mg tablet PO SCH (08:16)
[2018-12-15] MEDS ORDERED: aspirin 81mg tab.chew PO SCH (08:30)
[2018-12-15 10:00] VITALS: BP 167/88
[2018-12-15] MEDS ORDERED: [UNRECOGNIZED DRUG - REMARK] PO NR (10:00)
[2018-12-15] MEDS ORDERED: SIMV40TA PO (11:40)
[2018-12-15] MEDS ORDERED: LOSA25TA41 PO (11:40)
[2018-12-15] MEDS ORDERED: CLOP75TA35 PO (11:40)
[2018-12-15] MEDS ORDERED: ASPI-1265 PO (11:40)
[2018-12-15] MEDS ORDERED: AMOX-422 PO (11:46)
[2018-12-15 12:13] VITALS: BP 171/80
--- NOTE | 2018-12-15 13:59 | NUR ---
pt d/c with instructions, understanding of instructions, and w/all belongings in wheelchair to private vehicle to go home and f/u w/pcp
[2018-12-15] MEDS ORDERED: lactobacillus rhamnosus 10,000 MMU CELLS/CAPSULE PO SCH (20:00)
== END 2018-12-15 13:57 | disposition home or self-care (01) | DRG 65 ==
LOC: ER 20:09 → ORTHO 4S 23:53
PROVIDERS: ADMIT Internal Medicine; ATTEND Internal Medicine
DX: I63.512 Cerebral infarction due to unspecified occlusion or stenosis of left middle cerebral artery (principal); N39.0 Urinary tract infection, site not specified; B95.2 Enterococcus as the cause of diseases classified elsewhere; E11.65 Type 2 diabetes mellitus with hyperglycemia; E78.00 Pure hypercholesterolemia, unspecified; E78.5 Hyperlipidemia, unspecified; E87.6 Hypokalemia; E89.0 Postprocedural hypothyroidism; I10 Essential (primary) hypertension; I25.10 Atherosclerotic heart disease of native coronary artery without angina pectoris; Z79.4 Long term (current) use of insulin; Z82.3 Family history of stroke; Z83.3 Family history of diabetes mellitus; Z87.442 Personal history of urinary calculi; Z95.5 Presence of coronary angioplasty implant and graft; Z88.2 Allergy status to sulfonamides; Z88.5 Allergy status to narcotic agent; Z88.8 Allergy status to other drugs, medicaments and biological substances; Z98.891 History of uterine scar from previous surgery; Z72.89 Other problems related to lifestyle; Z79.899 Other long term (current) drug therapy
CPT/HCPCS: 36415; 70450; 70551; 71045; 80048; 80053; 81001; 82948; 83735; 84484; 85025; 85610; 85651; 85730; 87077; 87081; 87088; 87186; 93005; 97163; 97530; 99285; G0378; J2060; J3475; J3480